=== PATIENT | female | born 1965 | race Caucasian/White ===

== ENCOUNTER 2019-01-28 06:37 | Day surgery (SDC) | payer OTHER ==
[~2019-01-28 06:37] MED LIST: Lactated Ringers 1,000 ML IV SCH
[2019-01-28] MEDS ORDERED: Lactated Ringers 1,000 ML IV SCH (07:00)
[2019-01-28] MEDS ORDERED: Ondansetron 4 MG/2 ML SDV ONE (07:37)
[2019-01-28] MEDS ORDERED: Propofol 200 MG/20 ML SDV ONE (07:37)
[2019-01-28] MEDS ORDERED: fentaNYL 100 MCG/2 ML SDV ONE (07:37)
[2019-01-28] MEDS ORDERED: Midazolam 1 MG/ML 2 ML SDV ONE (07:37)
--- NOTE | 2019-01-28 14:20 | OR ---
DATE OF PROCEDURE: 01/28/2019 PROCEDURE: Colonoscopy. FINDINGS: Descending colon polyp approximately 1 cm, completely removed using hot snare. PREOPERATIVE DIAGNOSIS: Screening colonoscopy. POSTOPERATIVE DIAGNOSIS: Screening colonoscopy. RISKS: Risks, benefits, alternatives, and limitations including, but not limited to infection, bleeding, and perforation were explained to the patient who wished to proceed. PROCEDURE IN DETAIL: The patient was placed in left lateral decubitus position. Digital rectal exam was performed without abnormality. The scope was introduced into the rectum atraumatically into the ileocecal valve. The scope was brought back to the ascending, transverse, descending colon, and retroflexed. The aforementioned polyp was identified and completely removed. No abnormalities on retroflex. The patient tolerated the procedure well. Benson Lemon MD /[id number]
== END 2019-01-28 09:40 | disposition home or self-care (01) ==
LOC: JP.SDS 06:37
PROVIDERS: ATTEND Surgery
DX: Z12.11 Encounter for screening for malignant neoplasm of colon (principal); D12.4 Benign neoplasm of descending colon; K21.9 Gastro-esophageal reflux disease without esophagitis; F41.1 Generalized anxiety disorder
CPT/HCPCS: 45385; 88305; J2250; J2405; J2704; J3010